=== PATIENT | male | born 2000 | race American Indian/Alaskan Native ===

== ENCOUNTER 2018-07-29 13:16 | Emergency (ER) | payer SELFPAY ==
--- NOTE | 2018-07-29 16:55 | Emergency Department Report ---
ED Male HPI - General Chief complaint: Urogenital-Male Stated complaint: SKIN IRITATION Time Seen by Provider: 07/29/18 16:46 Source: patient Mode of arrival: Ambulatory Limitations: No Limitations - History of Present Illness Initial comments: 18-year-old male presents to ED complaining of irritation of his penile head times only. Patient states he was sexually active with these girlfriend about a week ago. Patient states about 2 days after that he noticed intermittent swelling tip of his penis. She states one morning [facility] [place] with some swelling on the tip of the minutes and some days it is gone. She denies any penile pain He denies fevers/penile discharge/dysuria/testicular pain or swelling Location: penis Radiation: none Severity: mild Consistency: intermittent - Related Data Previous Rx's Medication Instructions Recorded Last Taken Type Bacitracin Zinc Oint [Antibiotic 1 applicatio TP TID #1 tube 07/29/18 Unknown Rx Oint] Sulfamethoxazole/Trimethoprim 1 each PO BID #10 tablet 07/29/18 Unknown Rx [Bactrim DS TAB] Allergies Allergy/AdvReac Type Severity Reaction Status Date / Time No Known Allergies Allergy Unverified 10/20/14 10:56 ED Review of Systems ROS: Stated complaint: SKIN IRITATION Other details as noted in HPI Constitutional: denies: chills, fever Eyes: denies: eye pain, eye discharge, vision change ENT: denies: ear pain, throat pain Respiratory: denies: cough, shortness of breath, wheezing Cardiovascular: denies: chest pain, palpitations Endocrine: no symptoms reported Gastrointestinal: denies: abdominal pain, nausea, vomiting, diarrhea Genitourinary: denies: urgency, dysuria, frequency, hematuria, discharge, testicular pain, testicular mass Musculoskeletal: denies: back pain, joint swelling, arthralgia Skin: denies: rash, lesions, pruritus Hematological/Lymphatic: denies: easy bruising ED Past Medical Hx - Past Medical History Hx Asthma: Yes - Surgical History Past Surgical History?: No - Social History Smoking Status: Never Smoker Substance Use Type: None - Medications Home Medications: Home Medications Medication Instructions Recorded Confirmed Last Taken Type Bacitracin Zinc Oint [Antibiotic 1 applicatio TP TID #1 tube 07/29/18 Unknown Rx Oint] Sulfamethoxazole/Trimethoprim 1 each PO BID #10 tablet 07/29/18 Unknown Rx [Bactrim DS TAB] ED Physical Exam - General Limitations: No Limitations General appearance: alert, in no apparent distress - Head Head exam: Present: atraumatic, normocephalic - Eye Eye exam: Present: normal appearance - ENT ENT exam: Present: mucous membranes moist - Neck Neck exam: Present: normal inspection - Respiratory Respiratory exam: Present: normal lung sounds bilaterally. Absent: respiratory distress - Cardiovascular Cardiovascular Exam: Present: regular rate, normal rhythm. Absent: systolic murmur, diastolic murmur, rubs, gallop - GI/Abdominal GI/Abdominal exam: Present: soft, normal bowel sounds - Rectal Rectal exam: Present: deferred - exam: Present: normal inspection. Absent: testicular tenderness, urethral discharge, circumcision External exam: Present: normal external exam. Absent: erythema, swelling, lesions, lacerations, bleeding - Extremities Exam Extremities exam: Present: normal inspection - Back Exam Back exam: Present: normal inspection - Neurological Exam Neurological exam: Present: alert, oriented X3 - Psychiatric Psychiatric exam: Present: normal affect, normal mood - Skin Skin exam: Present: warm, dry, intact, normal color. Absent: rash ED Course Vital Signs 07/29/18 07/29/18 13:22 17:27 Temperature 98.2 F Pulse Rate 68 69 Respiratory 16 15 Rate Blood Pressure 148/74 Blood Pressure 134/87 [Left] O2 Sat by Pulse 100 100 Oximetry ED Medical Decision Making - Medical Decision Making 18-year-old male presents with balantitis ED course: Patient is sent home with antibiotics Discussed patient to return if new symptoms develop or symptoms worsen Discussed to follow up with primary care physician Discussed proper uncircumcised penile cleaning techniques instructions given Vital signs are normal patient is in no acute distress patient states he understands instructions. Critical care attestation.: If time is entered above; I have spent that time in minutes in the direct care of this critically ill patient, excluding procedure time. ED Disposition Clinical Impression: Balanitis, Foreskin inflammation Disposition: - TO HOME OR SELFCARE Is pt being admited?: No Does the pt Need Aspirin: No Condition: Stable Instructions: Bacitracin (On the skin), Foreskin Care (ED), Balanitis (ED) Additional Instructions: Make sure to follow up with the primary care physician as discussed. Take all your medications as you've been prescribed. If you have any worsening symptoms or develop new symptoms please return to ED immediately. Prescriptions: Bacitracin Zinc Oint [Antibiotic Oint] 1 applicatio TP TID #1 tube Sulfamethoxazole/Trimethoprim [Bactrim DS TAB] 1 each PO BID #10 tablet Referrals: PRIMARY CARE, [Primary Care Provider] - 3-5 Days [facility] [Outside] - 3-5 Days [facility] [Outside] - 3-5 Days Forms: Work/School Release Form(ED) Time of Disposition: 16:57
[2018-07-29 17:28] VITALS: BP 134/87
== END 2018-07-29 17:29 | disposition home or self-care (01) ==
LOC: ED 13:16
DX: N48.1 Balanitis (principal); J45.909 Unspecified asthma, uncomplicated
CPT/HCPCS: 99282